=== PATIENT | male | born 1945 | race Caucasian/White ===

== ENCOUNTER 2017-04-16 13:26 | Emergency (ER) | payer OTHER ==
[~2017-04-16] VITALS: Ht 165.1 cm; Wt 109.1 kg
[~2017-04-16 13:26] MED LIST: CEFU500T PO; METF500T4 PO; PRAV10TA39 PO
[2017-04-16 13:36] LABS: GLUCOSE,POINT OF CARE 147 MG/DL (70-110)
[2017-04-16] MEDS ORDERED: METO-325 PO (13:40)
[2017-04-16] MEDS ORDERED: ATOR40TA28 PO (13:40)
[2017-04-16] MEDS ORDERED: FURO20 PO (13:40)
[2017-04-16] MEDS ORDERED: MECL-111 PO (13:40)
[2017-04-16] MEDS ORDERED: SLOWK8 PO (13:40)
[2017-04-16] MEDS ORDERED: ASPI81 PO (13:40)
[2017-04-16] MEDS ORDERED: RANO500T3 PO (13:40)
[2017-04-16 13:54] LABS: BASOPHILS % (AUTO) 0.6 % (0.0-2.0); EOSINOPHILS % (AUTO) 1.6 % (1.0-6.0); HEMATOCRIT 44.1 % (41-53); LYMPHOCYTES # (AUTO) 2.5 K/uL (1.0-4.8); LYMPHOCYTES % (AUTO) 35.1 % (22.0-44.0); MEAN CORPUSCULAR HEMOGLOBIN 28.9 pg (26.0-34.0); MEAN CORPUSCULAR HGB CONC 31.6 G/dL (31.0-37.0); MEAN CORPUSCULAR VOLUME 91 fL (80-100); MONOCYTES # (AUTO) 0.6 K/uL (0.1-1.0); MONOCYTES % (AUTO) 8.4 % (2.0-9.0); NEUTROPHILS # (AUTO) 3.9 K/uL (1.8-7.7); NEUTROPHILS % (AUTO) 54.3 % (40.0-70.0); PLATELET COUNT (AUTO) 250 K/uL (150-450); RED BLOOD CELL COUNT(AUTO) 4.84 MIL/uL (4.50-5.90); RED CELL DISTRIBUTION WIDTH 14.8 % (11.5-14.5); WHITE BLOOD COUNT (AUTO) 7.3 K/uL (4.5-11.0)
[2017-04-16 14:03] LABS: ANION GAP 8 mmol/L (8-16); CALCIUM, TOTAL 8.8 mg/dL (8.8-10.5); CARBON DIOXIDE 29 mmol/L (22-29); CHLORIDE 105 mmol/L (98-107); CREATININE 0.96 mg/dL (0.60-1.30); GLOMERULAR FILTR. RATE CALC > 60 mL/min (>60); POTASSIUM 3.8 mmol/L (3.5-5.1); SODIUM SERUM 142 mmol/L (136-145); UREA NITROGEN, BLOOD 12 mg/dL (7-18)
[2017-04-16 14:08] LABS: ALANINE AMINOTRANSFERASE 27 U/L (12-78); ALBUMIN 3.8 g/dL (3.4-5.0); ASPARTATE AMINOTRANSFERASE 25 U/L (15-37); BILIRUBIN,TOTAL 0.6 mg/dL (0.1-1.0); TOTAL PROTEIN, SERUM 7.4 g/dL (6.4-8.2)
[2017-04-16 19:52] VITALS: BP 131/80
== END 2017-04-16 19:57 | disposition home or self-care (01) ==
LOC: EMS 13:28
DX: H81.399 Other peripheral vertigo, unspecified ear (principal); E11.9 Type 2 diabetes mellitus without complications; E78.00 Pure hypercholesterolemia, unspecified; Z88.0 Allergy status to penicillin; Z79.82 Long term (current) use of aspirin
CPT/HCPCS: 82962; 93005; 99285

== ENCOUNTER 2021-09-24 16:19 | Emergency (ER) | payer OTHER ==
[~2021-09-24] VITALS: Ht 170.2 cm; Wt 79.5 kg
[~2021-09-24 16:19] MED LIST changes: +ASPI-1450 PO; +ATOR40TA28 PO; -CEFU500T PO; +FURO20 PO; +MECL-160 PO; +METF-444 PO; -METF500T4 PO; +METO-558 PO; +POTA8TAB71 PO; +RANO500T3 PO
[2021-09-24] MEDS ORDERED: BACITRACIN 0.9 GM PACKET OINTMENT TP ONE (18:00)
[2021-09-24 18:03] VITALS: BP 132/74
[2021-09-24] MEDS ORDERED: DOXYCYCLINE HYCLATE 100 MG TABLET PO ONE (18:15)
[2021-09-24] MEDS ORDERED: PERTUSS(ACELL),DIPH,TET VAC/PF 0.5 ML SYRINGE IM. ONE (18:15)
== END 2021-09-24 19:13 | disposition home or self-care (01) ==
LOC: EMS 16:22
DX: S91.151A Open bite of right great toe without damage to nail, initial encounter (principal); W54.0XXA Bitten by dog, initial encounter; Y93.89 Activity, other specified; Y92.89 Other specified places as the place of occurrence of the external cause; Y99.8 Other external cause status; I10 Essential (primary) hypertension; E11.9 Type 2 diabetes mellitus without complications
CPT/HCPCS: 90471; 90715; 96372; 99283